=== PATIENT | male | born 1960 | race Asian ===

== ENCOUNTER 2020-07-28 20:21 | Emergency (ER) | payer OTHER ==
[~2020-07-28] VITALS: Ht 188 cm; Wt 136.1 kg
[~2020-07-28 20:21] MED LIST: DICL1GEL2 TOP
[2020-07-28 21:12] LABS: PLATELET COUNT 318 K/uL (142-355)
[2020-07-28 21:26] LABS: PARTIAL THROMBOPLASTIN TIME 23.3 SECONDS (24.5-33.6)
[2020-07-28 22:46] VITALS: BP 131/68; TEMP 98.2
[2020-07-28] MEDS ORDERED: AMIODARONE HCL100 MG PO (23:18)
[2020-07-28] MEDS ORDERED: LIPITOR20 MG PO (23:20)
[2020-07-28] MEDS ORDERED: BENZTROPINE0.5 MG PO (23:21)
[2020-07-28] MEDS ORDERED: DULCOLAX10 MG RE (23:23)
[2020-07-28] MEDS ORDERED: CARV6.25 PO (23:24)
[2020-07-28] MEDS ORDERED: DIVA250T2 PO (23:26)
[2020-07-28] MEDS ORDERED: ELIQUIS5 MG PO (23:26)
[2020-07-28] MEDS ORDERED: HALO5TAB10 PO (23:28)
[2020-07-28] MEDS ORDERED: FURO40TA93 PO (23:29)
[2020-07-28] MEDS ORDERED: LANTUS100 UNIT/M SC (23:29)
[2020-07-28] MEDS ORDERED: LEVO-T25 MCG PO (23:34)
[2020-07-28] MEDS ORDERED: MELATONIN3 M1 PO (23:35)
[2020-07-28] MEDS ORDERED: METF500T PO (23:36)
[2020-07-28] MEDS ORDERED: NITR0.4S2 SL (23:39)
[2020-07-28] MEDS ORDERED: NOVOLOG100 UNIT/M SC ×2 (23:46→23:48)
[2020-07-28] MEDS ORDERED: OMEPRAZOLE40 MG PO (23:49)
[2020-07-28] MEDS ORDERED: [UNRECOGNIZED DRUG - OTHER] PO (23:53)
[2020-07-28] MEDS ORDERED: SPIRONOLACT25 MG PO (23:55)
[2020-07-28] MEDS ORDERED: TRAMADOL HYDROC50 MG PO (23:56)
[2020-07-28] MEDS ORDERED: TYLENOL325 MG PO (23:58)
[2020-08-04] MEDS ORDERED: DIVALPROEX500 MG PO ×2 (08:12)
[2020-08-04] MEDS ORDERED: CHOL100034 PO (08:12)
[2020-08-04] MEDS ORDERED: FLUP10TA3 PO (08:12)
== END 2020-07-28 22:46 | disposition other institution (70) ==
LOC: ED 20:21
PROVIDERS: Emergency Medicine
DX: Z04.6 Encounter for general psychiatric examination, requested by authority (principal); Z11.59 Encounter for screening for other viral diseases
CPT/HCPCS: 36415; 80053; 80307; 81000; 85027; 85610; 85730; 87635; 93005; 99283; U0003

== ENCOUNTER 2021-06-30 19:24 | Emergency (ER) | payer OTHER ==
[~2021-06-30] VITALS: Ht 188 cm; Wt 143.8 kg
[~2021-06-30 19:24] MED LIST changes: +AMIODARONE HCL100 MG PO; +BENZTROPINE0.5 MG PO; +CARV6.25 PO; +CHOL100034 PO; +DIVA250T2 PO; +DIVALPROEX500 MG PO; +DULCOLAX10 MG RE; +ELIQUIS5 MG PO; +FLUP10TA3 PO; +FURO40TA93 PO; +HALO5TAB10 PO; +LANTUS100 UNIT/M SC; +LEVO-T25 MCG PO; +LIPITOR20 MG PO; +MELATONIN3 M1 PO; +METF500T PO; +NITR0.4S2 SL; +NOVOLOG100 UNIT/M SC; +OMEPRAZOLE40 MG PO; +SPIRONOLACT25 MG PO; +TRAMADOL HYDROC50 MG PO; +TYLENOL325 MG PO; +[UNRECOGNIZED DRUG - OTHER] PO
[2021-06-30 19:46] VITALS: BP 148/90; TEMP 98.6
[2021-06-30 20:15] LABS: PLATELET COUNT 217 K/uL (142-355)
[2021-06-30 20:28] LABS: POTASSIUM 4.4 mmol/L (3.6-5.2)
== END 2021-06-30 20:53 | disposition still patient (30) ==
LOC: ED 19:24
PROVIDERS: Hospitalist
DX: F25.8 Other schizoaffective disorders (principal); R46.89 Other symptoms and signs involving appearance and behavior; Z11.52 Encounter for screening for COVID-19; Z04.6 Encounter for general psychiatric examination, requested by authority
CPT/HCPCS: 36415; 80053; 80164; 81000; 85027; 87635; 99283; U0003

== ENCOUNTER 2021-08-22 21:42 | Emergency (ER) | payer OTHER ==
[~2021-08-22] VITALS: Ht 193 cm; Wt 152.4 kg
[~2021-08-22 21:42] MED LIST changes: +TRAZ50TA36 PO
[2021-08-22 22:24] LABS: PLATELET COUNT 213 K/uL (142-355)
[2021-08-22 22:51] LABS: POTASSIUM 4.2 mmol/L (3.6-5.2)
[2021-08-22 23:30] VITALS: BP 155/98; TEMP 97.9
[2021-08-23] MEDS ORDERED: DIVALPROEX500 M1 PO (09:52)
[2021-08-23] MEDS ORDERED: TUSSIN ADU100 MG/5 M PO (10:05)
[2021-08-23] MEDS ORDERED: CLARITIN10 M1 PO (10:06)
[2021-08-23] MEDS ORDERED: DOK100 MG PO (10:06)
[2021-08-23] MEDS ORDERED: LACTULOSE10 GM/15 M PO (10:07)
[2021-08-23] MEDS ORDERED: MIRALAX17 GM PO (10:08)
[2021-08-23] MEDS ORDERED: [UNRECOGNIZED DRUG - OTHER] PO (10:11)
[2021-08-23] MEDS ORDERED: TRAMADOL HYDROC50 MG PO (10:12)
== END 2021-08-22 23:30 | disposition still patient (30) ==
LOC: ED 21:42
PROVIDERS: Emergency Medicine
DX: F32.9 Major depressive disorder, single episode, unspecified (principal); R45.851 Suicidal ideations
CPT/HCPCS: 36415; 80053; 81000; 85027; 87635; 93005; 99283; U0003